=== PATIENT | female | born 1965 | race Hispanic/Latino ===

== ENCOUNTER 2021-10-11 10:21 | Outpatient (CLI) | payer BC ==
--- NOTE | 2021-10-13 09:12 | Mammography Report ---
DIGITAL SCREENING MAMMOGRAM WITH CAD, 10/11/2021 CLINICAL INFORMATION / INDICATION: Routine screening mammography. TECHNIQUE: Digital bilateral 2D mammography was obtained in the craniocaudal and mediolateral obliqu e projections. This examination was interpreted with the benefit of Computer-Aided Detection analysis . COMPARISON: 12/29/2019, 12/09/2018 FINDINGS: Breast Density: The breasts are heterogeneously dense, which may obscure small masses. No dominant mass, suspicious calcifications, or architectural distortion in either breast. Biopsy clips are again seen bilaterally. Benign-appearing bilateral nodularity has overall improved. IMPRESSION: No mammographic evidence of malignancy. Follow up recommendation: Routine yearly screening mammogram. BI-RADS Category 2: BENIGN. A "normal" or negative report should not discourage follow up or biopsy of a clinically significant f inding. A written summary of these findings will be mailed to the patient. The patient will be entered into a mammography reporting system which will generate a reminder letter for the patient's next appointmen t at the appropriate interval. The [employer] recommends yearly mammograms starting at age 40 and continuing as l diane as a woman is in good health. Breast MRI is recommended for women with an approximate 20-25% or greater lifetime risk of breast cancer, including women with a strong family history of breast or ova abimael cancer or who have been treated for Hodgkin's disease. Signer Name: Louis Gutierrez MD Signed: 10/13/2021 9:08 AM Workstation Name: [email or web address]
== END 2021-10-11 10:22 | disposition home or self-care (01) ==
LOC: SPVWC 10:21
PROVIDERS: ATTEND Surgery
DX: Z12.31 Encounter for screening mammogram for malignant neoplasm of breast (principal)
CPT/HCPCS: 77067

== ENCOUNTER 2021-10-26 09:14 | Outpatient (CLI) | payer BC ==
--- NOTE | 2021-10-26 10:45 | Ultrasound Report ---
ULTRASOUND BREAST RIGHT LIMITED, 10/26/2021 CLINICAL INFORMATION / INDICATION: The patient reports a palpable lump in the right axilla. TECHNIQUE: Targeted ultrasound evaluation was performed of the area of interest. COMPARISON: Bilateral mammogram, 10/11/2021, 12/29/2019 and 12/09/2018 FINDINGS: Sonographic evaluation of the right axilla in the patient's area of palpable concern demonstrates no suspicious solid mass, shadowing or fluid collection. No abnormal right axillary lymph nodes are iden tified. IMPRESSION: 1. No sonographic abnormality to account for the patient's area of palpable concern in the right axi lla. Clinical correlation is recommended. Follow up recommendation: Clinical exam BI-RADS Category 1: NEGATIVE. A normal or "negative" report should not preclude biopsy or follow-up of a clinically suspicious find ing. Signer Name: Virginia Sarmiento MD Signed: 10/26/2021 10:40 AM Workstation Name: [id number]
== END 2021-10-26 09:15 | disposition home or self-care (01) ==
LOC: US 09:14
PROVIDERS: ATTEND Surgery
DX: N63.31 Unspecified lump in axillary tail of the right breast (principal); N60.11 Diffuse cystic mastopathy of right breast